=== PATIENT | male | born 1950 | race Two or more races ===

== ENCOUNTER 2019-07-11 05:38 | Inpatient (IN) | payer MEDICAID, MEDICARE ==
[~2019-07-11] VITALS: Ht 177.8 cm; Wt 59.7 kg
--- NOTE | 2019-07-11 05:42 | NUR ---
laboratory secretary activated @0524 via code phone after [facility] pre alert Cardiology called @[phone] Gunnar returned call @[phone] All cathode builder in route @[phone] per code phone
--- NOTE | 2019-07-11 05:51 | NUR ---
Pt presents to ed c/o crushing and tight bilateral cp since 2099 last night. States went to bed and woke up to crushing cp this am @0500. EMS noted ST elevation on ekg in field and code cardiac initiated. Denies any relevant hx. States pain subsided after nitrox1 via [facility]. Given 324 mg aspirin en route. All clothes removed from pt and all monitoring applied, including transluscent pads. TKO fluids w/ extension placed. SPO2 on R thumb, bp cuff on L arm. Time of entrance to ED on R foot. Awaiting laborer cement gun placing team at this time w/ confirmed er ekg. Pt vss. WCTM.
[2019-07-11] MEDS ORDERED: BIVALIRUDIN 250 MG ONE (05:57)
[2019-07-11] MEDS ORDERED: LIDOCAINE 1%, 20ML ONE (05:57)
[2019-07-11] MEDS ORDERED: MIDAZOLAM 1 MG/ML, 5ML ONE (05:57)
[2019-07-11] MEDS ORDERED: FENTANYL PF 250 MCG/5ML ONE (05:57)
--- NOTE | 2019-07-11 05:57 | NUR ---
Pt states he will not sign consent w/ daughter approving. Md called daughter to inform and she gave verbal consent over phone. Pt udated on info.
[2019-07-11] MEDS ORDERED: VERAPAMIL 2.5 MG/ML, 2ML ONE (05:59)
[2019-07-11] MEDS ORDERED: HEPARIN 1,000 UNITS/ML, 10ML ONE (05:59)
--- NOTE | 2019-07-11 06:00 | NUR ---
Istat back and at bedside w/ copy and original of ekg.
--- NOTE | 2019-07-11 06:03 | NUR ---
Pearl Hand at bedside.
[2019-07-11 06:09] LABS: BASOPHILS # (AUTO) 0.02 x10^3/uL (0-0.1); BASOPHILS % (AUTO) 0 % (0-1); EOSINOPHILS % (AUTO) 0 % (1-7); LYMPHOCYTES # (AUTO) 1.02 x10^3/uL (1-3.4); LYMPHOCYTES % (AUTO) 14 % (22-44); MD NO; MEAN CORPUSCULAR HGB CONC 33.5 g/dL (33.2-36.2); MEAN CORPUSCULAR VOLUME 89.8 fL (81-97); MEAN PLATELET VOLUME 7.5 fL (7.4-10.4); MONOCYTES # (AUTO) 0.37 x10^3/uL (0.2-0.8); MONOCYTES % (AUTO) 5 % (2-9); NEUTROPHILS % (AUTO) 81 % (42-75); PLATELET COUNT 314 x10^3/uL (130-400); RED BLOOD COUNT 4.55 x10^6/uL (4.38-5.82); RED CELL DISTRIBUTION WIDTH 14.7 % (9.4-14.8)
[2019-07-11 06:21] LABS: INTERNATIONAL NORMALIZED RATIO 0.98 (0.93-1.1); PROTHROMBIN TIME 10.4 Seconds (9.6-11.5)
[2019-07-11] MEDS ORDERED: SODIUM CHLORIDE FLUSH 10ML SYR IVF PRN (06:30)
[2019-07-11] MEDS ORDERED: TICAGRELOR 90 MG TABLET ONE (06:57)
[2019-07-11] MEDS ORDERED: ONDANSETRON 2MG/ML, 2ML IVPush PRN (07:30)
[2019-07-11] MEDS ORDERED: ACETAMINOPHEN 325 MG TABLET PO PRN (07:30)
[2019-07-11] MEDS ORDERED: TICAGRELOR 90 MG TABLET PO SCH (20:00)
[2019-07-11] MEDS: ATORVASTATIN 40 MG TABLET PO SCH (20:46)
[2019-07-11] MEDS ORDERED: TICAGRELOR 90 MG TABLET PO ONE (21:00)
[2019-07-12 04:49] LABS: ANION GAP 3 mmol/L (5-15); CALCIUM 8.7 mg/dL (8.5-10.1); CHLORIDE 108 mmol/L (98-107); CREATININE 0.83 mg/dL (0.7-1.3)
[2019-07-12 04:50] LABS: CHOLESTEROL, TOTAL 191 mg/dL (140-239); TRIGLYCERIDES 86 mg/dL (50-200); VLDL CHOLESTEROL 17 mg/dL (0-25)
[2019-07-12 05:08] LABS: CHOL/HDL RATIO 4.3; HDL CHOL % 23 % (26-37); HDL CHOLESTEROL (DIRECT) 44 mg/dL (40-60); LDL CHOLESTEROL,CALCULATED 130 mg/dL (54-169)
[2019-07-12 05:38] LABS: BASOPHILS # (AUTO) 0.12 x10^3/uL (0-0.1); BASOPHILS % (AUTO) 1 % (0-1); EOSINOPHILS # (AUTO) 0.04 x10^3/uL (0-0.4); EOSINOPHILS % (AUTO) 0 % (1-7); LYMPHOCYTES # (AUTO) 1.97 x10^3/uL (1-3.4); LYMPHOCYTES % (AUTO) 17 % (22-44); MD SCAN; MEAN CORPUSCULAR HEMOGLOBIN 29.7 pg (27.5-34.5); MEAN CORPUSCULAR HGB CONC 33.5 g/dL (33.2-36.2); MEAN CORPUSCULAR VOLUME 88.7 fL (81-97); MEAN PLATELET VOLUME 8.1 fL (7.4-10.4); MONOCYTES # (AUTO) 1.24 x10^3/uL (0.2-0.8); MONOCYTES % (AUTO) 11 % (2-9); NEUTROPHILS # (AUTO) 7.94 x10^3/uL (1.8-6.8); NEUTROPHILS % (AUTO) 70 % (42-75); PLATELET COUNT 323 x10^3/uL (130-400); RED BLOOD COUNT 4.95 x10^6/uL (4.38-5.82); RED CELL DISTRIBUTION WIDTH 14.8 % (9.4-14.8)
[2019-07-12] MEDS: ASPIRIN 81 MG TABLET EC PO SCH (06:04)
[2019-07-12] MEDS ORDERED: TICAGRELOR 90 MG TABLET PO SCH (07:00)
[2019-07-12] MEDS: TICAGRELOR 90 MG TABLET PO SCH ×2 (09:30→21:37)
[2019-07-12 14:00] VITALS: BP 101/66
[2019-07-12 18:41] VITALS: BP 104/64
[2019-07-12] MEDS: ATORVASTATIN 40 MG TABLET PO SCH (21:37)
[2019-07-13 01:27] VITALS: BP 95/60
[2019-07-13] MEDS: ASPIRIN 81 MG TABLET EC PO SCH (05:09)
[2019-07-13 07:03] VITALS: BP 93/58
[2019-07-13] MEDS: TICAGRELOR 90 MG TABLET PO SCH (08:41)
[2019-07-13] MEDS ORDERED: TICA90TA PO (11:07)
[2019-07-13] MEDS ORDERED: ACET325T26 PO (11:07)
[2019-07-13] MEDS ORDERED: ATOR40TA78 PO (11:07)
[2019-07-13] MEDS ORDERED: ASPI81TA45 PO (11:07)
[2019-07-13] MEDS ORDERED: FLU VACC QS2019-20 36MOS UP/PF 0.5 ML IM-VACC ONE (12:00)
== END 2019-07-13 14:00 | disposition home or self-care (01) | DRG 246 ==
LOC: ED 05:48 → EDIP 06:07 → CCU 07:16 → 5SO 07-12 13:33
PROVIDERS: ADMIT Internal Medicine; ATTEND Internal Medicine
PROC: 02C03ZZ Extirpation of Matter from Coronary Artery, One Artery, Percutaneous Approach (ICD-10-PCS; principal; 2019-07-11)
PROC: 027034Z Dilation of Coronary Artery, One Artery with Drug-eluting Intraluminal Device, Percutaneous Approach (ICD-10-PCS; 2019-07-11)
PROC: 4A023N7 Measurement of Cardiac Sampling and Pressure, Left Heart, Percutaneous Approach (ICD-10-PCS; 2019-07-11)
PROC: B211YZZ Fluoroscopy of Multiple Coronary Arteries using Other Contrast (ICD-10-PCS; 2019-07-11)
DX: I21.09 ST elevation (STEMI) myocardial infarction involving other coronary artery of anterior wall (principal); I50.41 Acute combined systolic (congestive) and diastolic (congestive) heart failure; E78.5 Hyperlipidemia, unspecified; I25.5 Ischemic cardiomyopathy; I95.81 Postprocedural hypotension; Z87.891 Personal history of nicotine dependence; Z91.19 Patient's noncompliance with other medical treatment and regimen
CPT/HCPCS: 36415; 71045; 80047; 80048; 80061; 84484; 85025; 85610; 85730; 87081; 90686; 92973; 93005; 93454; 99156; 99157; 99285; C1769; C1894; C8929; G0378; J0583; J1644; J2250; J3010; Q9957; C1725; C1757; C1874; C1887; Q9967

== ENCOUNTER 2019-08-23 15:24 | Emergency (ER) | payer MEDICARE, MEDICAID ==
[~2019-08-23] VITALS: Ht 177.8 cm; Wt 59.0 kg
[~2019-08-23 15:24] MED LIST: ACET325T26 PO; ASPI81TA45 PO; ATOR40TA78 PO; TICA90TA PO
--- NOTE | 2019-08-23 15:45 | NUR ---
BREAK RN: PT TO ROOM FROM TRIAGE. HR 170. IV PLACED, LABS DRAWN. 69 YR OLD MALE HERE WITH INTERMITTENT INCREASED HR OVER LAST 2 DAYS. PT HAD STENT PLACED APPROX 1 MONTH AGO. PT HAD BEEN ON METOPROLOL, HAD BEEN TAKEN OFF. PT PLACED ON MONITORS. DR PERAZA AT BEDSIDE TO [facility] PT.
[2019-08-23] MEDS ORDERED: ADENOSINE 6 MG/2 ML ONE (15:48)
--- NOTE | 2019-08-23 15:54 | NUR ---
6MG ADENISON IVP GIVEN BY DR PERAZA. 98% 2L NC.
--- NOTE | 2019-08-23 16:08 | NUR ---
REPEAT EKG COMPLETED
--- NOTE | 2019-08-23 16:09 | NUR ---
PT RESTING, VSS, HR NSR 90S, EKG COMPLETE.
--- NOTE | 2019-08-23 16:09 | NUR ---
REPORT TO [facility]
[2019-08-23 16:21] LABS: BASOPHILS # (AUTO) 0.03 x10^3/uL (0-0.1); BASOPHILS % (AUTO) 1 % (0-1); EOSINOPHILS # (AUTO) 0.02 x10^3/uL (0-0.4); EOSINOPHILS % (AUTO) 0 % (1-7); LYMPHOCYTES # (AUTO) 1.08 x10^3/uL (1-3.4); LYMPHOCYTES % (AUTO) 17 % (22-44); MD NO; MEAN CORPUSCULAR HEMOGLOBIN 29.2 pg (27.5-34.5); MEAN CORPUSCULAR HGB CONC 33.1 g/dL (33.2-36.2); MEAN CORPUSCULAR VOLUME 88.3 fL (81-97); MEAN PLATELET VOLUME 7.2 fL (7.4-10.4); MONOCYTES # (AUTO) 0.92 x10^3/uL (0.2-0.8); MONOCYTES % (AUTO) 15 % (2-9); NEUTROPHILS # (AUTO) 4.16 x10^3/uL (1.8-6.8); NEUTROPHILS % (AUTO) 67 % (42-75); PLATELET COUNT 487 x10^3/uL (130-400); RED BLOOD COUNT 4.21 x10^6/uL (4.38-5.82); RED CELL DISTRIBUTION WIDTH 14.7 % (9.4-14.8)
[2019-08-23] MEDS ORDERED: ADENOSINE 6 MG/2 ML IVPush ONE (16:30)
[2019-08-23 16:32] LABS: ALANINE AMINOTRANSFERASE 37 U/L (12-78); ALBUMIN 2.6 g/dL (3.4-5.0); ANION GAP 5 mmol/L (5-15); CALCIUM 8.3 mg/dL (8.5-10.1); CHLORIDE 101 mmol/L (98-107); CREATININE 0.88 mg/dL (0.7-1.3)
[2019-08-23 16:34] LABS: ALKALINE PHOSPHATASE 86 U/L (45-117); BILIRUBIN,TOTAL 0.4 mg/dL (0.2-1.0); TOTAL PROTEIN 7.8 g/dL (6.4-8.2)
[2019-08-23 17:10] VITALS: BP 104/68
--- NOTE | 2019-08-23 17:11 | NUR ---
PT DENIES CP OR SOB. HR NSR 80S. NO FURTHER NEEDS AT THIS TIME
--- NOTE | 2019-08-23 17:55 | NUR ---
Patient/Caregiver given discharge instructions and they have confirmed that they understand the instructions. Patient ambulatory with steady gait.
== END 2019-08-23 18:17 | disposition home or self-care (01) ==
LOC: ED 18:00
DX: I47.1 Supraventricular tachycardia (principal); I25.2 Old myocardial infarction; Z95.5 Presence of coronary angioplasty implant and graft
CPT/HCPCS: 36415; 80053; 85025; 93005; 96374; 99284; J0153

== ENCOUNTER 2019-08-24 11:17 | Emergency (ER) | payer MEDICARE, MEDICAID ==
[~2019-08-24] VITALS: Ht 177.8 cm; Wt 58.0 kg
[2019-08-24] MEDS ORDERED: ADENOSINE 6 MG/2 ML ONE (11:27)
[2019-08-24] MEDS ORDERED: METOPROLOL 1 MG/ML, 5ML ONE (11:51)
--- NOTE | 2019-08-24 11:53 | NUR ---
PALPITATIONS/DIZZINESS "MY HEART IS BEATING FAST, I THINK THE MEDICATION MY DR IS GIVING ME IS MAKING IT HAPPEN, I WAS HERE YESTERDAY FOR THE SAME THING, I'M NOT SURE WHAT IT IS", PT HANDED RN PAPERWORK FOR CODE CARDIAC 07/10, HR 183 IN TRIAGE. DENIES CHEST PAIN, EKG DONE. PATIENT IN BED WITH CONT PROJECT MANAGER PROCESS DEVELOPMENT, SPO2, BP Q 5 MIN. GAVE ADENOSINE, PATIENT NOW IN NSR, EKG DONE. PATIENT HAS NO PALPITATIONS OR DIZZINESS AT THIS TIME.
[2019-08-24] MEDS: METOPROLOL 1 MG/ML, 5ML IVPush ONE ×2 (11:57→11:59)
[2019-08-24] MEDS ORDERED: ADENOSINE 6 MG/2 ML IVPush ONE (12:00)
[2019-08-24] MEDS ORDERED: SODIUM CHLORIDE 0.9%, 500ML IVBOLUS ONE (12:00)
[2019-08-24] MEDS ORDERED: DIGOXIN 0.25 MG/ML, 2ML IVPush ONE (12:00)
[2019-08-24] MEDS ORDERED: DIGOXIN 0.25 MG/ML, 2ML ONE (12:00)
--- NOTE | 2019-08-24 12:06 | NUR ---
LUNCH BREAK NOTE: METOPROLOL CHANGED TO DIG BY DR. RODGERS. DIGOXIN GIVEN.
[2019-08-24 14:44] VITALS: BP 102/56
== END 2019-08-24 15:07 | disposition home or self-care (01) ==
LOC: ED 12:21
DX: I47.1 Supraventricular tachycardia (principal); R42 Dizziness and giddiness; Z98.61 Coronary angioplasty status
CPT/HCPCS: 93005; 96361; 96374; 96375; 99284; J0153; J1160; J7040

== ENCOUNTER 2019-08-30 20:25 | Inpatient (IN) | payer MEDICARE, MEDICAID ==
[~2019-08-30] VITALS: Ht 177.8 cm; Wt 56.3 kg
[2019-08-30 21:25] LABS: BASOPHILS # (AUTO) 0.03 x10^3/uL (0-0.1); BASOPHILS % (AUTO) 1 % (0-1); EOSINOPHILS # (AUTO) 0.02 x10^3/uL (0-0.4); EOSINOPHILS % (AUTO) 0 % (1-7); LYMPHOCYTES # (AUTO) 0.75 x10^3/uL (1-3.4); LYMPHOCYTES % (AUTO) 12 % (22-44); MD NO; MEAN CORPUSCULAR HEMOGLOBIN 28.5 pg (27.5-34.5); MEAN CORPUSCULAR HGB CONC 32.7 g/dL (33.2-36.2); MEAN CORPUSCULAR VOLUME 87.3 fL (81-97); MEAN PLATELET VOLUME 6.7 fL (7.4-10.4); MONOCYTES # (AUTO) 0.84 x10^3/uL (0.2-0.8); MONOCYTES % (AUTO) 14 % (2-9); NEUTROPHILS # (AUTO) 4.39 x10^3/uL (1.8-6.8); NEUTROPHILS % (AUTO) 73 % (42-75); PLATELET COUNT 439 x10^3/uL (130-400); RED BLOOD COUNT 4.02 x10^6/uL (4.38-5.82); RED CELL DISTRIBUTION WIDTH 14.5 % (9.4-14.8)
[2019-08-30] MEDS ORDERED: SODIUM CHLORIDE FLUSH 10ML SYR IVF ONE (21:30)
[2019-08-30 21:34] LABS: ALANINE AMINOTRANSFERASE 29 U/L (12-78); ALBUMIN 2.4 g/dL (3.4-5.0); ANION GAP 5 mmol/L (5-15); CALCIUM 8.1 mg/dL (8.5-10.1); CHLORIDE 99 mmol/L (98-107); CREATININE 0.79 mg/dL (0.7-1.3)
[2019-08-30 21:37] LABS: ALKALINE PHOSPHATASE 77 U/L (45-117); BILIRUBIN,TOTAL 0.3 mg/dL (0.2-1.0); TOTAL PROTEIN 7.4 g/dL (6.4-8.2); TROPONIN I 0.021 ng/mL (0.000-0.045)
--- NOTE | 2019-08-30 22:28 | NUR ---
pt states he has been coughing up blood for about a week. piv placed and blood cultures drawn. pt attached to all monitors.
[2019-08-30] MEDS ORDERED: PIPERACILLIN/TAZO/PMX 4.5GM 100 ML IVPB ONE (23:00)
--- NOTE | 2019-08-30 23:04 | NUR ---
PT AMBULATORY TO THE BATHROOM WITH STEADY GAIT
[2019-08-30] MEDS ORDERED: OMNIPAQUE 350 MG/ML, 100ML BOTTLE ONE (23:18)
--- NOTE | 2019-08-30 23:36 | NUR ---
ANTIBIOTICS INITATED AFTER BLOOD CULTURES WERE DRAWN
[2019-08-30] MEDS ORDERED: DIGO250T3 PO (23:39)
[2019-08-30] MEDS ORDERED: SODIUM CHLORIDE 0.9% 1,000 ML IV SCH (23:59)
[2019-08-31] MEDS ORDERED: ONDANSETRON 2MG/ML, 2ML IVPush PRN
[2019-08-31] MEDS ORDERED: SODIUM CHLORIDE FLUSH 10ML SYR IVF PRN
[2019-08-31] MEDS ORDERED: PIPERACILLIN/TAZO/PMX 3.375GM 50 ML IV SCH
[2019-08-31] MEDS ORDERED: hydrALAzine 20 MG/ML, 1ML IVPush PRN
[2019-08-31] MEDS ORDERED: POLYETHYLENE GLYCOL 17 GM PACKET PO PRN
[2019-08-31] MEDS ORDERED: BISACODYL 10 MG SUPP PR PRN
[2019-08-31] MEDS ORDERED: HEPARIN 5,000 UNITS/ML, 1ML SQ SCH
[2019-08-31] MEDS ORDERED: ACETAMINOPHEN 325 MG TABLET PO PRN
--- NOTE | 2019-08-31 00:38 | NUR ---
PT MOVED TO [facility] PRESSURE ROOM AND PROVIDED HOSPITAL BED
[2019-08-31] MEDS ORDERED: PIPERACILLIN/TAZO/PMX 3.375GM 50 ML ONE (00:44)
[2019-08-31 00:49] LABS: INTERNATIONAL NORMALIZED RATIO 1.01 (0.93-1.1); PROTHROMBIN TIME 10.7 Seconds (9.6-11.5)
[2019-08-31 03:06] LABS: BASOPHILS # (AUTO) 0.04 x10^3/uL (0-0.1); BASOPHILS % (AUTO) 1 % (0-1); EOSINOPHILS # (AUTO) 0.02 x10^3/uL (0-0.4); EOSINOPHILS % (AUTO) 0 % (1-7); LYMPHOCYTES # (AUTO) 1.44 x10^3/uL (1-3.4); LYMPHOCYTES % (AUTO) 21 % (22-44); MD NO; MEAN CORPUSCULAR HEMOGLOBIN 28.7 pg (27.5-34.5); MEAN CORPUSCULAR HGB CONC 32.8 g/dL (33.2-36.2); MEAN CORPUSCULAR VOLUME 87.4 fL (81-97); MEAN PLATELET VOLUME 6.7 fL (7.4-10.4); MONOCYTES % (AUTO) 13 % (2-9); NEUTROPHILS # (AUTO) 4.52 x10^3/uL (1.8-6.8); NEUTROPHILS % (AUTO) 65 % (42-75); PLATELET COUNT 467 x10^3/uL (130-400); RED BLOOD COUNT 4.33 x10^6/uL (4.38-5.82); RED CELL DISTRIBUTION WIDTH 14.9 % (9.4-14.8)
[2019-08-31 03:19] LABS: ANION GAP 3 mmol/L (5-15); CALCIUM 8.5 mg/dL (8.5-10.1); CHLORIDE 104 mmol/L (98-107); CREATININE 0.82 mg/dL (0.7-1.3)
[2019-08-31 03:22] LABS: TROPONIN I 0.032 ng/mL (0.000-0.045)
[2019-08-31 03:32] VITALS: BP 114/69
[2019-08-31] MEDS: PIPERACILLIN/TAZO/PMX 3.375GM 50 ML IV SCH ×3 (06:26→21:12)
[2019-08-31] MEDS: ASPIRIN 81 MG TABLET EC PO SCH (06:26)
[2019-08-31 06:45] VITALS: BP 112/67
[2019-08-31] MEDS: DIGOXIN 0.25 MG TABLET PO SCH (09:00)
[2019-08-31] MEDS: TICAGRELOR 90 MG TABLET PO SCH ×2 (09:00→21:12)
[2019-08-31] MEDS: SENNA/DOCUSATE TABLET PO SCH (09:00)
[2019-08-31 12:16] LABS: TROPONIN I 0.019 ng/mL (0.000-0.045)
[2019-08-31] MEDS: D5%-0.45NACL+KCL 20MEQ 1,000 ML IV SCH (13:10)
[2019-08-31 13:14] VITALS: BP 105/64
[2019-08-31 20:13] VITALS: BP 126/72
[2019-08-31] MEDS: ATORVASTATIN 40 MG TABLET PO SCH (21:12)
[2019-09-01 00:35] VITALS: BP 103/61
[2019-09-01] MEDS: PIPERACILLIN/TAZO/PMX 3.375GM 50 ML IV SCH ×4 (02:59→20:59)
[2019-09-01 05:40] LABS: BASOPHILS # (AUTO) 0.02 x10^3/uL (0-0.1); BASOPHILS % (AUTO) 0 % (0-1); EOSINOPHILS % (AUTO) 0 % (1-7); LYMPHOCYTES % (AUTO) 13 % (22-44); MD NO; MEAN CORPUSCULAR HEMOGLOBIN 28.5 pg (27.5-34.5); MEAN CORPUSCULAR HGB CONC 32.7 g/dL (33.2-36.2); MONOCYTES % (AUTO) 10 % (2-9); NEUTROPHILS # (AUTO) 5.56 x10^3/uL (1.8-6.8); NEUTROPHILS % (AUTO) 77 % (42-75); PLATELET COUNT 432 x10^3/uL (130-400); RED CELL DISTRIBUTION WIDTH 14.3 % (9.4-14.8)
[2019-09-01 05:50] LABS: ALBUMIN 2.4 g/dL (3.4-5.0); ANION GAP 7 mmol/L (5-15); CALCIUM 8.5 mg/dL (8.5-10.1); CHLORIDE 98 mmol/L (98-107)
[2019-09-01 05:53] LABS: CREATININE 1.03 mg/dL (0.7-1.3)
[2019-09-01] MEDS: ASPIRIN 81 MG TABLET EC PO SCH (06:08)
[2019-09-01 07:11] VITALS: BP 96/49
[2019-09-01] MEDS: SENNA/DOCUSATE TABLET PO SCH (08:50)
[2019-09-01] MEDS: DIGOXIN 0.25 MG TABLET PO SCH (08:50)
[2019-09-01] MEDS: TICAGRELOR 90 MG TABLET PO SCH ×2 (08:50→20:59)
[2019-09-01 12:10] VITALS: BP 110/65
[2019-09-01] MEDS: D5%-0.45NACL+KCL 20MEQ 1,000 ML IV SCH (13:37)
[2019-09-01] MEDS: ATORVASTATIN 40 MG TABLET PO SCH (20:59)
[2019-09-01 21:00] VITALS: BP 118/65
[2019-09-02 02:30] VITALS: BP 112/70
[2019-09-02] MEDS: PIPERACILLIN/TAZO/PMX 3.375GM 50 ML IV SCH ×4 (02:33→21:06)
[2019-09-02] MEDS: ASPIRIN 81 MG TABLET EC PO SCH (04:49)
[2019-09-02 06:52] LABS: BASOPHILS # (AUTO) 0.02 x10^3/uL (0-0.1); BASOPHILS % (AUTO) 0 % (0-1); EOSINOPHILS # (AUTO) 0.02 x10^3/uL (0-0.4); EOSINOPHILS % (AUTO) 0 % (1-7); LYMPHOCYTES # (AUTO) 1.02 x10^3/uL (1-3.4); LYMPHOCYTES % (AUTO) 16 % (22-44); MD NO; MEAN CORPUSCULAR HEMOGLOBIN 28.3 pg (27.5-34.5); MEAN CORPUSCULAR HGB CONC 32.4 g/dL (33.2-36.2); MEAN CORPUSCULAR VOLUME 87.3 fL (81-97); MEAN PLATELET VOLUME 7.2 fL (7.4-10.4); MONOCYTES # (AUTO) 0.92 x10^3/uL (0.2-0.8); MONOCYTES % (AUTO) 15 % (2-9); NEUTROPHILS % (AUTO) 68 % (42-75); PLATELET COUNT 382 x10^3/uL (130-400); RED BLOOD COUNT 4.42 x10^6/uL (4.38-5.82); RED CELL DISTRIBUTION WIDTH 15.1 % (9.4-14.8)
[2019-09-02 06:54] LABS: ALBUMIN 2.4 g/dL (3.4-5.0); ANION GAP 7 mmol/L (5-15); CALCIUM 8.5 mg/dL (8.5-10.1); CHLORIDE 101 mmol/L (98-107); CREATININE 0.99 mg/dL (0.7-1.3)
[2019-09-02 07:06] VITALS: BP 94/57
[2019-09-02] MEDS: D5%-0.45NACL+KCL 20MEQ 1,000 ML IV SCH (09:00)
[2019-09-02] MEDS: DIGOXIN 0.25 MG TABLET PO SCH (10:00)
[2019-09-02] MEDS: TICAGRELOR 90 MG TABLET PO SCH ×2 (10:00→21:06)
[2019-09-02] MEDS: SENNA/DOCUSATE TABLET PO SCH (10:00)
[2019-09-02 11:00] LABS: QUANTIFERON TB Ag1-NIL 2.27 (0.000-0.000)
[2019-09-02 14:20] VITALS: BP 105/55
[2019-09-02] MEDS: ATORVASTATIN 40 MG TABLET PO SCH (21:06)
[2019-09-02 21:12] VITALS: BP 105/64
[2019-09-03] MEDS: PIPERACILLIN/TAZO/PMX 3.375GM 50 ML IV SCH ×4 (03:27→22:33)
[2019-09-03 03:28] VITALS: BP 101/62
[2019-09-03] MEDS: D5%-0.45NACL+KCL 20MEQ 1,000 ML IV SCH (05:03)
[2019-09-03] MEDS: ASPIRIN 81 MG TABLET EC PO SCH (05:04)
[2019-09-03 08:19] VITALS: BP 88/49
[2019-09-03] MEDS: SENNA/DOCUSATE TABLET PO SCH (09:00)
[2019-09-03] MEDS: TICAGRELOR 90 MG TABLET PO SCH ×2 (10:03→22:33)
[2019-09-03] MEDS: DIGOXIN 0.25 MG TABLET PO SCH (10:03)
[2019-09-03 13:20] VITALS: BP 90/51
[2019-09-03] MEDS: ATORVASTATIN 40 MG TABLET PO SCH (22:33)
[2019-09-03 22:37] VITALS: BP 98/57
[2019-09-04] MEDS: PIPERACILLIN/TAZO/PMX 3.375GM 50 ML IV SCH ×4 (03:46→20:30)
[2019-09-04 03:48] VITALS: BP 96/58
[2019-09-04] MEDS: ASPIRIN 81 MG TABLET EC PO SCH (05:59)
[2019-09-04 06:38] VITALS: BP 104/60
[2019-09-04] MEDS: SENNA/DOCUSATE TABLET PO SCH ×2 (09:00→09:03)
[2019-09-04] MEDS: DIGOXIN 0.25 MG TABLET PO SCH (09:03)
[2019-09-04] MEDS: TICAGRELOR 90 MG TABLET PO SCH (09:03)
[2019-09-04] MEDS ORDERED: HEPARIN 5,000 UNITS/ML, 1ML IV ONE (10:00)
[2019-09-04] MEDS: D5%-0.45% NACL 1,000 ML IV SCH (10:52)
[2019-09-04] MEDS: HEPARIN 25,000 UNITS/250ML PMX 250 ML IV PRN ×2 (13:29→20:31)
[2019-09-04 14:41] VITALS: BP 97/56
[2019-09-04 20:00] VITALS: BP 96/57
[2019-09-04] MEDS: ATORVASTATIN 40 MG TABLET PO SCH (20:30)
[2019-09-05 02:03] VITALS: BP 101/65
[2019-09-05] MEDS: HEPARIN 5,000 UNITS/ML, 1ML IV PRN ×2 (03:43→10:44)
[2019-09-05] MEDS: PIPERACILLIN/TAZO/PMX 3.375GM 50 ML IV SCH ×2 (03:43→09:49)
[2019-09-05] MEDS: ASPIRIN 81 MG TABLET EC PO SCH (05:59)
[2019-09-05 08:12] VITALS: BP 93/60
[2019-09-05] MEDS: DIGOXIN 0.25 MG TABLET PO SCH (09:00)
[2019-09-05] MEDS: SENNA/DOCUSATE TABLET PO SCH (09:00)
[2019-09-05] MEDS ORDERED: DIGOXIN 0.125 MG TABLET ONE (09:39)
[2019-09-05] MEDS: D5%-0.45% NACL 1,000 ML IV SCH (09:49)
[2019-09-05] MEDS ORDERED: PYRAZINAMIDE 500 MG TABLET PO SCH (13:00)
[2019-09-05 13:42] VITALS: BP 94/59
[2019-09-05] MEDS: RIFAMPIN 300 MG CAPSULE PO SCH (13:55)
[2019-09-05] MEDS: PYRIDOXINE 50MG TABLET PO SCH (13:55)
[2019-09-05] MEDS: ISONIAZID 300 MG TABLET PO SCH (13:55)
[2019-09-05] MEDS: ETHAMBUTOL 400 MG TABLET PO SCH (18:26)
[2019-09-05 20:14] VITALS: BP 120/66
[2019-09-05] MEDS: ATORVASTATIN 40 MG TABLET PO SCH (22:17)
[2019-09-06] MEDS: HEPARIN 5,000 UNITS/ML, 1ML IV PRN ×2 (01:10→17:37)
[2019-09-06] MEDS: HEPARIN 25,000 UNITS/250ML PMX 250 ML IV PRN (01:59)
[2019-09-06 03:58] VITALS: BP 110/68
[2019-09-06] MEDS: D5%-0.45% NACL 1,000 ML IV SCH (05:59)
[2019-09-06] MEDS: ASPIRIN 81 MG TABLET EC PO SCH (06:31)
[2019-09-06 07:50] VITALS: BP 105/66
[2019-09-06] MEDS: SENNA/DOCUSATE TABLET PO SCH (09:00)
[2019-09-06] MEDS: DIGOXIN 0.25 MG TABLET PO SCH (09:00)
[2019-09-06] MEDS ORDERED: PYRAZINAMIDE 500 MG TABLET PO SCH (09:00)
[2019-09-06] MEDS ORDERED: DIGOXIN 0.125 MG TABLET ONE ×2 (09:13)
[2019-09-06] MEDS: ETHAMBUTOL 400 MG TABLET PO SCH (09:22)
[2019-09-06] MEDS: PYRIDOXINE 50MG TABLET PO SCH ×2 (09:22→13:23)
[2019-09-06] MEDS: RIFAMPIN 300 MG CAPSULE PO SCH (09:23)
[2019-09-06] MEDS: ISONIAZID 300 MG TABLET PO SCH (13:23)
[2019-09-06 14:28] VITALS: BP 98/67
[2019-09-06 20:00] VITALS: BP 100/62
[2019-09-06] MEDS: ATORVASTATIN 40 MG TABLET PO SCH (21:26)
[2019-09-07 00:45] VITALS: BP 97/60
[2019-09-07] MEDS: D5%-0.45% NACL 1,000 ML IV SCH ×2 (00:45→18:15)
[2019-09-07] MEDS: HEPARIN 25,000 UNITS/250ML PMX 250 ML IV PRN (03:50)
[2019-09-07] MEDS: HEPARIN 5,000 UNITS/ML, 1ML IV PRN (05:03)
[2019-09-07] MEDS: ASPIRIN 81 MG TABLET EC PO SCH (05:12)
[2019-09-07 08:05] VITALS: BP 96/61
[2019-09-07] MEDS: SENNA/DOCUSATE TABLET PO SCH (09:00)
[2019-09-07] MEDS: RIFAMPIN 300 MG CAPSULE PO SCH (10:10)
[2019-09-07] MEDS: DIGOXIN 0.25 MG TABLET PO SCH (10:10)
[2019-09-07] MEDS: PYRIDOXINE 50MG TABLET PO SCH (10:10)
[2019-09-07] MEDS: ETHAMBUTOL 400 MG TABLET PO SCH (10:11)
[2019-09-07] MEDS: ISONIAZID 300 MG TABLET PO SCH (13:15)
[2019-09-07] MEDS: PYRAZINAMIDE 500 MG TABLET PO SCH (13:15)
[2019-09-07 15:33] VITALS: BP 100/64
[2019-09-07 21:00] VITALS: BP 101/63
[2019-09-07] MEDS: ATORVASTATIN 40 MG TABLET PO SCH (21:57)
[2019-09-07] MEDS: TICAGRELOR 90 MG TABLET PO SCH (21:57)
[2019-09-08 01:59] VITALS: BP 104/65
[2019-09-08] MEDS: ASPIRIN 81 MG TABLET EC PO SCH (05:43)
[2019-09-08 08:00] VITALS: BP 93/56
[2019-09-08] MEDS: TICAGRELOR 90 MG TABLET PO SCH ×2 (08:47→21:13)
[2019-09-08] MEDS: DIGOXIN 0.25 MG TABLET PO SCH (08:48)
[2019-09-08] MEDS: ETHAMBUTOL 400 MG TABLET PO SCH (08:48)
[2019-09-08] MEDS: RIFAMPIN 300 MG CAPSULE PO SCH (08:48)
[2019-09-08] MEDS: SENNA/DOCUSATE TABLET PO SCH (08:48)
[2019-09-08] MEDS: PYRAZINAMIDE 500 MG TABLET PO SCH (08:48)
[2019-09-08] MEDS: PYRIDOXINE 50MG TABLET PO SCH (08:49)
[2019-09-08] MEDS: ISONIAZID 300 MG TABLET PO SCH (08:49)
[2019-09-08 13:15] VITALS: BP 101/62
[2019-09-08] MEDS: D5%-0.45% NACL 1,000 ML IV SCH (16:12)
[2019-09-08] MEDS: ATORVASTATIN 40 MG TABLET PO SCH (21:13)
[2019-09-08 21:16] VITALS: BP 100/59
[2019-09-09 02:00] VITALS: BP 115/65
[2019-09-09] MEDS: ASPIRIN 81 MG TABLET EC PO SCH (05:10)
[2019-09-09 07:58] VITALS: BP 99/62
[2019-09-09] MEDS: ISONIAZID 300 MG TABLET PO SCH (08:22)
[2019-09-09] MEDS: PYRIDOXINE 50MG TABLET PO SCH (08:22)
[2019-09-09] MEDS: TICAGRELOR 90 MG TABLET PO SCH ×2 (08:22→20:52)
[2019-09-09] MEDS: ETHAMBUTOL 400 MG TABLET PO SCH (08:22)
[2019-09-09] MEDS: DIGOXIN 0.25 MG TABLET PO SCH (08:23)
[2019-09-09] MEDS: PYRAZINAMIDE 500 MG TABLET PO SCH (08:23)
[2019-09-09] MEDS: RIFAMPIN 300 MG CAPSULE PO SCH (08:23)
[2019-09-09] MEDS: SENNA/DOCUSATE TABLET PO SCH (08:24)
[2019-09-09] MEDS: ENOXAPARIN 40 MG/0.4 ML SQ SCH (14:30)
[2019-09-09 15:20] VITALS: BP 116/70
[2019-09-09] MEDS ORDERED: SODIUM CHLORIDE INHALATION 7%, 4 ML NPPB ONE ×2 (15:30→20:30)
[2019-09-09 20:46] VITALS: BP 106/67
[2019-09-09] MEDS: ATORVASTATIN 40 MG TABLET PO SCH (20:52)
[2019-09-10 01:55] VITALS: BP 101/65
[2019-09-10 05:13] LABS: BASOPHILS # (AUTO) 0.02 x10^3/uL (0-0.1); BASOPHILS % (AUTO) 0 % (0-1); EOSINOPHILS # (AUTO) 0.09 x10^3/uL (0-0.4); EOSINOPHILS % (AUTO) 1 % (1-7); LYMPHOCYTES # (AUTO) 0.79 x10^3/uL (1-3.4); LYMPHOCYTES % (AUTO) 11 % (22-44); MD NO; MEAN CORPUSCULAR HEMOGLOBIN 28.2 pg (27.5-34.5); MEAN CORPUSCULAR HGB CONC 32.4 g/dL (33.2-36.2); MEAN CORPUSCULAR VOLUME 86.9 fL (81-97); MEAN PLATELET VOLUME 6.4 fL (7.4-10.4); MONOCYTES # (AUTO) 1.06 x10^3/uL (0.2-0.8); MONOCYTES % (AUTO) 15 % (2-9); NEUTROPHILS # (AUTO) 5.24 x10^3/uL (1.8-6.8); NEUTROPHILS % (AUTO) 73 % (42-75); PLATELET COUNT 455 x10^3/uL (130-400); RED BLOOD COUNT 3.89 x10^6/uL (4.38-5.82); RED CELL DISTRIBUTION WIDTH 15.2 % (9.4-14.8)
[2019-09-10 05:20] LABS: ALANINE AMINOTRANSFERASE 87 U/L (12-78); ALBUMIN 1.9 g/dL (3.4-5.0); ANION GAP 6 mmol/L (5-15); CALCIUM 8.4 mg/dL (8.5-10.1); CHLORIDE 100 mmol/L (98-107)
[2019-09-10 05:23] LABS: ALKALINE PHOSPHATASE 84 U/L (45-117); BILIRUBIN,TOTAL 0.5 mg/dL (0.2-1.0); TOTAL PROTEIN 7.1 g/dL (6.4-8.2)
[2019-09-10] MEDS: ASPIRIN 81 MG TABLET EC PO SCH (05:43)
[2019-09-10] MEDS: RIFAMPIN 300 MG CAPSULE PO SCH (08:52)
[2019-09-10] MEDS: ISONIAZID 300 MG TABLET PO SCH (08:52)
[2019-09-10] MEDS: PYRIDOXINE 50MG TABLET PO SCH (08:52)
[2019-09-10] MEDS: ETHAMBUTOL 400 MG TABLET PO SCH (08:52)
[2019-09-10] MEDS: PYRAZINAMIDE 500 MG TABLET PO SCH (08:52)
[2019-09-10] MEDS: DIGOXIN 0.25 MG TABLET PO SCH (08:52)
[2019-09-10] MEDS: TICAGRELOR 90 MG TABLET PO SCH ×2 (08:52→20:33)
[2019-09-10] MEDS: SENNA/DOCUSATE TABLET PO SCH (08:55)
[2019-09-10 09:00] VITALS: BP 107/68
[2019-09-10] MEDS: ENOXAPARIN 40 MG/0.4 ML SQ SCH (12:43)
[2019-09-10 17:00] VITALS: BP 116/68
[2019-09-10 20:28] VITALS: BP 110/68
[2019-09-10] MEDS: ATORVASTATIN 40 MG TABLET PO SCH (20:32)
[2019-09-11 00:58] VITALS: BP 113/64
[2019-09-11] MEDS: ASPIRIN 81 MG TABLET EC PO SCH (05:37)
[2019-09-11 08:40] VITALS: BP 96/60
[2019-09-11] MEDS: PYRIDOXINE 50MG TABLET PO SCH (08:46)
[2019-09-11] MEDS: PYRAZINAMIDE 500 MG TABLET PO SCH (08:46)
[2019-09-11] MEDS: ISONIAZID 300 MG TABLET PO SCH (08:46)
[2019-09-11] MEDS: RIFAMPIN 300 MG CAPSULE PO SCH (08:46)
[2019-09-11] MEDS: TICAGRELOR 90 MG TABLET PO SCH ×2 (08:46→20:44)
[2019-09-11] MEDS: DIGOXIN 0.25 MG TABLET PO SCH (08:46)
[2019-09-11] MEDS: ETHAMBUTOL 400 MG TABLET PO SCH (08:46)
[2019-09-11] MEDS: SENNA/DOCUSATE TABLET PO SCH (08:47)
[2019-09-11] MEDS: ENOXAPARIN 40 MG/0.4 ML SQ SCH (13:10)
[2019-09-11 16:55] VITALS: BP 111/70
[2019-09-11 19:39] VITALS: BP 103/63
[2019-09-11] MEDS: ATORVASTATIN 40 MG TABLET PO SCH (20:44)
[2019-09-12 00:35] VITALS: BP 106/65
[2019-09-12] MEDS: ASPIRIN 81 MG TABLET EC PO SCH (05:43)
[2019-09-12 08:24] VITALS: BP 95/57
[2019-09-12] MEDS: SENNA/DOCUSATE TABLET PO SCH (09:00)
[2019-09-12] MEDS: TICAGRELOR 90 MG TABLET PO SCH ×2 (09:22→21:42)
[2019-09-12] MEDS: RIFAMPIN 300 MG CAPSULE PO SCH (09:22)
[2019-09-12] MEDS: ISONIAZID 300 MG TABLET PO SCH (09:22)
[2019-09-12] MEDS: PYRAZINAMIDE 500 MG TABLET PO SCH (09:22)
[2019-09-12] MEDS: PYRIDOXINE 50MG TABLET PO SCH (09:22)
[2019-09-12] MEDS: ETHAMBUTOL 400 MG TABLET PO SCH (09:22)
[2019-09-12] MEDS: DIGOXIN 0.25 MG TABLET PO SCH (09:22)
[2019-09-12 14:13] VITALS: BP 143/65
[2019-09-12] MEDS: ENOXAPARIN 40 MG/0.4 ML SQ SCH (14:30)
[2019-09-12] MEDS: ATORVASTATIN 40 MG TABLET PO SCH (21:42)
[2019-09-12 21:43] VITALS: BP 112/57
[2019-09-13 01:55] VITALS: BP 100/61
[2019-09-13 05:36] LABS: BASOPHILS # (AUTO) 0.04 x10^3/uL (0-0.1); BASOPHILS % (AUTO) 1 % (0-1); EOSINOPHILS # (AUTO) 0.13 x10^3/uL (0-0.4); EOSINOPHILS % (AUTO) 2 % (1-7); LYMPHOCYTES % (AUTO) 13 % (22-44); MD NO; MEAN CORPUSCULAR HEMOGLOBIN 28.1 pg (27.5-34.5); MEAN CORPUSCULAR HGB CONC 32.4 g/dL (33.2-36.2); MEAN CORPUSCULAR VOLUME 86.9 fL (81-97); MEAN PLATELET VOLUME 6.4 fL (7.4-10.4); MONOCYTES # (AUTO) 0.75 x10^3/uL (0.2-0.8); MONOCYTES % (AUTO) 11 % (2-9); NEUTROPHILS # (AUTO) 5.25 x10^3/uL (1.8-6.8); NEUTROPHILS % (AUTO) 74 % (42-75); PLATELET COUNT 540 x10^3/uL (130-400); RED BLOOD COUNT 3.79 x10^6/uL (4.38-5.82)
[2019-09-13 05:43] LABS: ALANINE AMINOTRANSFERASE 132 U/L (12-78); ANION GAP 5 mmol/L (5-15); CALCIUM 8.4 mg/dL (8.5-10.1); CHLORIDE 100 mmol/L (98-107); CREATININE 0.75 mg/dL (0.7-1.3)
[2019-09-13 05:46] LABS: ALKALINE PHOSPHATASE 98 U/L (45-117); BILIRUBIN,TOTAL 0.3 mg/dL (0.2-1.0); TOTAL PROTEIN 7.2 g/dL (6.4-8.2)
[2019-09-13] MEDS: ASPIRIN 81 MG TABLET EC PO SCH (05:58)
[2019-09-13 07:58] VITALS: BP 96/60
[2019-09-13] MEDS ORDERED: ISON300T10 PO (09:44)
[2019-09-13] MEDS ORDERED: SENN-193 PO (09:44)
[2019-09-13] MEDS ORDERED: [UNRECOGNIZED DRUG - CODE] PO (09:44)
[2019-09-13] MEDS ORDERED: RIFA300C3 PO (09:44)
[2019-09-13] MEDS ORDERED: ETHA400T17 PO (09:44)
[2019-09-13] MEDS ORDERED: PYRI50TA7 PO (09:44)
[2019-09-13] MEDS: SENNA/DOCUSATE TABLET PO SCH (10:02)
[2019-09-13] MEDS: DIGOXIN 0.25 MG TABLET PO SCH (10:03)
[2019-09-13] MEDS: ETHAMBUTOL 400 MG TABLET PO SCH (10:03)
[2019-09-13] MEDS: PYRAZINAMIDE 500 MG TABLET PO SCH (10:03)
[2019-09-13] MEDS: PYRIDOXINE 50MG TABLET PO SCH (10:03)
[2019-09-13] MEDS: ISONIAZID 300 MG TABLET PO SCH (10:03)
[2019-09-13] MEDS: RIFAMPIN 300 MG CAPSULE PO SCH (10:13)
[2019-09-13] MEDS: TICAGRELOR 90 MG TABLET PO SCH (10:13)
== END 2019-09-13 10:44 | disposition home or self-care (01) | DRG 177 ==
LOC: ED 21:26 → EDIP 23:38 → 4NW 08-31 02:23 → 3N 09-05 01:37
PROVIDERS: ADMIT Hospitalist; ATTEND Family Medicine
DX: A15.0 Tuberculosis of lung (principal); E43 Unspecified severe protein-calorie malnutrition; R04.2 Hemoptysis; E87.1 Hypo-osmolality and hyponatremia; Z68.1 Body mass index [BMI] 19.9 or less, adult; I50.22 Chronic systolic (congestive) heart failure; D68.69 Other thrombophilia; J15.6 Pneumonia due to other Gram-negative bacteria; Z20.828 Contact with and (suspected) exposure to other viral communicable diseases; J98.4 Other disorders of lung; I25.10 Atherosclerotic heart disease of native coronary artery without angina pectoris; I25.5 Ischemic cardiomyopathy; I80.9 Phlebitis and thrombophlebitis of unspecified site; Z79.82 Long term (current) use of aspirin; I25.2 Old myocardial infarction; Z79.899 Other long term (current) drug therapy; Z95.5 Presence of coronary angioplasty implant and graft
CPT/HCPCS: 36415; 71045; 71260; 80048; 80053; 80069; 80162; 82728; 83036; 83605; 83615; 83735; 84145; 84484; 85025; 85379; 85520; 85610; 86480; 87015; 87040; 87116; 87206; 87635; 87806; 93005; 94640; 96365; 99285; G0378; J1644; J2543; Q9967; G0475; J3480; J7030; U0001-CS

== ENCOUNTER → 2020-02-24 | Outpatient (CLI) | payer MEDICARE, MEDICAID ==
[~2020-02-24] MED LIST changes: +DIGO250T3 PO; +ETHA400T17 PO; +ISON300T10 PO; +PYRI50TA7 PO; +RIFA300C3 PO; +SENN-193 PO; +[UNRECOGNIZED DRUG - CODE] PO
== END | disposition home or self-care (01) ==
LOC: CFH 09:04
PROVIDERS: ATTEND Registered Nurse
DX: I08.2 Rheumatic disorders of both aortic and tricuspid valves (principal); I25.2 Old myocardial infarction; I25.5 Ischemic cardiomyopathy
CPT/HCPCS: 93306